=== PATIENT | female | born 1960 | race African-American/Black ===

== ENCOUNTER 2018-10-24 08:45 | Outpatient (CLI) | payer OTHER ==
--- NOTE | 2018-10-24 14:13 | CT ---
EXAM: Abdomen and pelvic CT scan without contrast: HISTORY: Worsening pain, history of periumbilical hernia COMPARISON: None FINDINGS: IV access was attempted but could not be obtained. There is a tubular air-filled flexible appearing structure within the stomach which appears to be rordigo e type of swallowed foreign body. Small hiatal hernia. Somewhat multilobulated fairly prominent primarily fat containing periumbilical hernia without eviden ce for incarceration. Minimal focal fat stranding adjacent to the hernia on the left side probably representing some type o f focal inflammation/subcutaneous infection. The visualized lung bases are clear. Liver: Unremarkable. Gallbladder:Unremarkable. Pancreas:Unremarkable Spleen:Unremarkable. Adrenal glands:Unremarkable. Kidneys:No renal calculus or acute obstruction.No solid or cystic mass. No evidence for bowel obstruction. No CT evidence for acute appendicitis. The urinary bladder is unremarkable. No abscess, adenopathy, or abnormal fluid collection within the abdomen or pelvis. IMPRESSION: Primarily fat containing multilobulated periumbilical hernia with some adjacent subcutaneous fat stra nding on the left side possibly representing some type of soft tissue inflammation/infection. Somewhat tubular shaped structure within the stomach evidence for some type of swallowed foreign body . Small hiatal hernia.
== END 2018-10-24 08:46 | disposition home or self-care (01) ==
LOC: NAV CT 08:45
PROVIDERS: ATTEND Nurse Practitioner Family
DX: R10.33 Periumbilical pain (principal); K44.9 Diaphragmatic hernia without obstruction or gangrene; K42.9 Umbilical hernia without obstruction or gangrene; R93.3 Abnormal findings on diagnostic imaging of other parts of digestive tract
CPT/HCPCS: 74176

== ENCOUNTER 2020-01-24 17:00 | Emergency (ER) | payer OTHER ==
[2020-01-24 18:04] LABS: #Basophils 0.1 thou/uL (0.0-0.2); #Eosinphils 0.3 thou/uL (0.0-0.7); #Lymphocytes 1.4 thou/uL (1.20-3.40); #Monocytes 0.6 thou/uL (0.11-0.59); #Neutrophils 6.4 thou/uL (1.40-6.50); %Basophils 0.8 % (0.0-1.0); %Eosinophils 3.4 % (0.0-10.0); %Lymphocytes 15.7 % (21.0-51.0); %Monocytes 7.3 % (0.0-10.0); %Neutrophils 72.8 % (42.0-75.0); Hemoglobin 10.1 g/dL (12.0-16.0); Mean Corpuscular HGB CONC 28.2 g/dL (32.0-36.0); Mean Corpuscular Hemoglobin 22.9 pg (27.0-31.0); Mean Corpuscular Volume 81.4 fL (78.0-98.0); Mean Platelet Volume 7.4 fL (7.4-10.4); Platelet Count 288 thou/uL (130-400); RBC Distribution Width 16.7 % (11.5-14.5); Red Blood Cell (RBC) Count 4.41 mill/uL (4.20-5.40); White Blood Cell (WBC) Count 8.8 thou/uL (4.8-10.8)
[2020-01-24 18:10] LABS: Anion Gap 19 mmol/L (10-20); BUN (Urea Nitrogen) 16 mg/dL (9.8-20.1); Calc. Creatinine Clearance 0 mL/min (70-130); Calcium 9.5 mg/dL (7.8-10.44); Carbon Dioxide 22 mmol/L (22-29); Chloride 103 mmol/L (98-107); Estimated GFR-MDRD 89; Glucose 118 mg/dL (70-105); Potassium 3.8 mmol/L (3.5-5.1); Sodium 140 mmol/L (136-145)
--- NOTE | 2020-01-24 18:10 | RAD ---
XR Knee Rt 4 View STANDARD: 01/24/2020 5:43 PM CLINICAL INDICATION: Right knee pain COMPARISON: None. FINDINGS: Bones: No acute fracture is demonstrated. Joints: There is severe osteoarthrosis of the right knee. No joint capsular distention is evident.. Soft Tissue: There is diffuse soft tissue swelling of the right lower extremity with multiple small s ubcutaneous phleboliths. IMPRESSION: No acute osseous abnormality..
[2020-01-24 18:53] LABS: Hypochromia SLIGHT = 6-15 cells (100X) (0-5/hpf); MDiff Complete? YES; Microcytosis SLIGHT = 6-15 cells (100X) (0-5/hpf); Platelet Morphology Comment Appears Adequate
[2020-01-24] MEDS ORDERED: predniSONE 20 MG TAB ONE (19:40)
== END 2020-01-24 19:50 | disposition home or self-care (01) ==
LOC: NAV ERS 17:00
DX: M19.90 Unspecified osteoarthritis, unspecified site (principal); E11.40 Type 2 diabetes mellitus with diabetic neuropathy, unspecified; E78.5 Hyperlipidemia, unspecified; E66.01 Morbid (severe) obesity due to excess calories; Z87.891 Personal history of nicotine dependence; I10 Essential (primary) hypertension; Z79.899 Other long term (current) drug therapy; Z79.82 Long term (current) use of aspirin
CPT/HCPCS: 80048; 83880; 85025; J7512